=== PATIENT | female | born 1980 | race Caucasian/White ===

== ENCOUNTER 2016-12-09 16:45 | Observation (INO) | payer OTHER ==
[2016-12-09] MEDS ORDERED: ALBUTEROL SULFATE 2.5 MG/0.5 ML VIAL.NEB IH ONE ×2 (17:03→19:00)
[2016-12-09] MEDS ORDERED: predniSONE 20 MG TABLET ONE (17:18)
[2016-12-09 19:00] LABS: Albumin * 2.9 gm/dl (3.4-5.0); BUN/Creatinine Ratio 17.7 (9.0-21.6); Bilirubin, Total 0.8 mg/dL (0.0-1.1); Ca. Corrected For Albumin 9.3 mg/dL (8.4-10.2); Calcium * 8.7 mg/dL (7.9-10.9); Carbon Dioxide 27.4 mmol/L (24-32.6); Potassium 3.4 mmol/L (3.4-4.6); Total Protein 6.7 gm/dL (6.2-8.2)
[2016-12-09] MEDS ORDERED: ALBUTEROL SULFATE 2.5 MG/3 ML VIAL.NEB IH ONE (19:02)
--- NOTE | 2016-12-09 19:02 | ERNOTE ---
Dyspnea - Date Date of Service: 12/09/16 - General Presenting Symptoms: shortness of breath Source: patient Exam Limitations: no limitations - Immun/Allergies/Home Medications Immunizations: IMMUNIZATION HX Immunizations Up to Date Yes History of Influenza Vaccine No Hx Pneumococcal Vaccination No Allergies/Adverse Reactions: Allergies aspirin Allergy (Verified 12/09/16 20:58) ibuprofen Allergy (Verified 12/09/16 20:58) Home Medications: HOME MEDICATIONS Albuterol Sulfate 2.5 mg IH Q2H PRN 12/14/12 [Last Taken Unknown] Montelukast Sodium [Singulair] 10 mg PO HS 12/14/12 [Last Taken Unknown] Budesonide/Formoterol Fumarate [Symbicort 160-4.5 Mcg Inhaler] 3 puff IH BID 05/27 [Last Taken Unknown] ALPRAZolam [Xanax] 0.5 mg PO TID PRN 12/09/16 [Last Taken Unknown] Duloxetine HCl [Cymbalta] 30 mg PO DAILY 12/09/16 [Last Taken 12/09/16 09:00] Fluticasone Propionate [Flonase] 2 spray NS BID 12/09/16 [Last Taken Unknown] HYDROcodone/ACETAMINOPHEN [[place] 5-325] 1 tab PO Q4H PRN 12/09/16 [Last Taken Unknown] Sertraline HCl [Zoloft] 50 mg PO DAILY 12/09/16 [Last Taken 12/09/16 09:00] - History of Present Illness Narrative: patient started to get short of breath last night, getting continuously worse, neb treatments are only helping a little. She has a history of asthma, has had a few exacerbation, was on CPAP for it once , no intubation, no problems yet this years. She still smokes one pack per day, has a history of sleep apnea but does not use a CPAP at night Treatment [employer]: by patient, albuterol Initiating event: Reports: exposure to smoke. Denies: upper resp illness, out of meds Frequency of episodes: Reports: occassional episodes Modifying Factors - (Improves): Reports: albuterol Modifying Factors (Worsens): Reports: activity Prior Treatment: Denies: recently seen, currently on antibiotics Review of Systems - Review of Systems Constitutional: Absent: recent illness, fever, chills EYE: Absent: vision changes ENT: Absent: nose congestion, sore throat Respiratory: Present: See HPI, shortness of breath, cough - slight Cardiology: Absent: chest pain, palpitations Gastrointestinal/Abdominal: Absent: nausea, vomiting, abdominal pain Genitourinary: Present: no symptoms reported Musculoskeletal: Absent: back pain Skin: Absent: rash Neurological: Absent: headache - Patient's Past Medical History Patient History - Medical: No pertinent hx Patient History - Cardiac/Respiratory: Asthma Patient History - Cancer: No Hx of Cancer Patient History - Surgical Procedures: Cholecystectomy, Tubal Ligation, T & A LMP (females 10-50): this week - Family History Father Family History - Medical: No pertinent hx Mother Family History - Medical: No pertinent hx - Social History Living Situations: home Psych History: No pertinent hx Smoking Status: Current every day smoker - Immunizations Immunizations Up to Date: Yes Hx Pneumococcal Vaccination: No History of Influenza Vaccine: No Physical Exam - Physical Exam General Appearance: Present: wd/wn, alert, mild distress, anxious, obese Ears, Nose, Throat: Present: normal ENT inspection, normal pharynx Neck: Absent: lymphadenopathy (R), lymphadenopathy (L) Respiratory: Present: respiratory distress - mild, decreased breath sounds, expiration (prolonged) Cardiovascular/Chest: Present: no murmur, normal peripheral pulses, tachycardia Gastrointestinal/Abdominal: Present: nontender, nondistended Neurological Exam: Present: alert, oriented, normal mood/affect Skin Exam: Present: normal color, warm/dry ED Progress - Results and Orders Patient's Lab Results:: I have reviewed the patient's lab results. - Vital Signs Patient's Vital Signs:: I have reviewed the patient's vital signs. Vital Signs: Vital Signs 12/09/16 16:49 Temperature 36.4 C L Pulse Rate 116 H Respiratory 26 H Rate Blood Pressure 148/105 - X-Ray X-Ray #1 X-Ray: chest - no acute changes Interpretation: Interp. by me - Progress/Reassessment Chief Complaint: Dyspnea Progress Note-Subjective: 12/09/16 18:00 improved air movement after albuterol neb treatment, O2 sat 92% on RA 12/09/16 19:00 increased work of breathing, still wheezing 12/09/16 19:06 after minimal exertion O2 sats 88-89% 12/09/16 19:20 discussed results with patient and family, offered admission, patient agreed 12/09/16 19:30 discussed with Deidre Aaron NRP, okay to admit for asthma exacerbation ,will decided on antibiotic Departure Clinical Impression: Asthma exacerbation - Departure Disposition: [facility] Condition: Good
[2016-12-09 19:42] LABS: Mean Cell Volume 83.7 fl (78-100); Mean Corpuscular Hemoglobin 27.2 pg (27-31); Mean Corpuscular Hgb Conc 32.6 g/dl (32-36); Mean Platelet Volume 8.5 fl (6.0-9.5); Platelet Count 640 K/mm3 (150-450); Red Blood Count 5.14 M/mm3 (4.2-5.4); Red Cell Distribution Width 14.7 % (11.5-14.0)
[2016-12-09 19:59] LABS: Total Cells Counted 100
[2016-12-09 20:01] LABS: Atypical (Reactive) Lymph 4 % (0-2); Eosinophil 2 % (0-3); Lymphocyte 32 % (20-51); Monocyte 6 % (0-9); Neutrophil 56 % (42-75); Neutrophil # 10.6 K/mm3 (1.3-6.0)
[2016-12-09 20:02] LABS: Platelet Estimate Increased (NORMAL); RBC Morphology Normal (NORMAL)
--- NOTE | 2016-12-09 20:32 | HP ---
Chief Complaint - Chief Complaint Date of Service: 12/09/16 Time of Service: 20:14 Chief Complaint: " SOB, Coughing, Wheezing". Source of HPI- Pt; reliable, ER provider report. History of Present Illness: Ms. Gomes is a 36-yr-old [place] pt who normally sees Brandi Ontiveros, a family medicine physician in [place]. Her PMH is relevant for Asthma & DOROTHEA only. Pt states that she begun having worsening SOB yesterday morning. Today, she felt a lot worse with chest tightness and used her breathing treatments round the clock , at least every 2-3 hours. She reports that the treatments would help momentarily and as soon as she was done, she got SOB and needed to do another nebulizer treatment. She finally chose to come to the ED at 5pm. She denies fevers and chills. She also denies any URI symptoms. The last hospitalization for Asthma exacerbation was 1 year ago. She completed a course of Prednisone dose two weeks ago. She admits to cigarette smoking of 1 PPD for the last 17 yrs. She has attempted many times to quit, but has not been successful. At the ED today, she continued to have Expi. & Insp. Wheezing despite administration with Albuterol treatments and Oral Steroids. During ambulation, her POX dropped to 88% RA. The CXR obtained did not have any acute findings. She will need to be admitted under observation due to poor response to the emergency department treatment for Asthma Exacerbation. - Patient's Past Medical History Patient History - Medical: No pertinent hx Patient History - Cardiac/Respiratory: Asthma Patient History - Cancer: No Hx of Cancer Patient History - Surgical Procedures: Cholecystectomy, Tubal Ligation, T & A LMP (females 10-50): this week - Family History Father Family History - Medical: No pertinent hx Mother Family History - Medical: No pertinent hx - Social History Living Situations: home Psych History: No pertinent hx Smoking Status: Current every day smoker - Immunizations Immunizations Up to Date: Yes Hx Pneumococcal Vaccination: No History of Influenza Vaccine: No Review Of Systems (GEN) - Review of Systems Generalized/Overall Review: Absent: Weakness, Chills, Fever, Malaise, Diaphoresis EENTM: Absent: Eye Pain, Blurred Vision, Double Vision Respiratory: Present: Cough, Shortness of Breath, Wheezing. Absent: Orthopnea, Stridor Cardiac: Absent: Chest Pain, Edema, Palpitations, Syncope Abdominal: Absent: Nausea, Vomiting, Hematemesis Genitourinary: Absent: Burning, Itching, Urgency, Frequency, Hematuria Musculoskeletal: Absent: Joint Pain, Back Pain, Joint Swelling, Muscle Pain Neurological: Absent: Headache, Anxiety, Depressed, Numbness, Parasthesia Skin: Absent: Dryness, Lesions Endocrine: Absent: Intolerance to Cold, Intolerance to Heat, Increased Hunger, Increased Thirst Misc: All systems neg except as marked Allergies/Adverse Reactions: Allergies Allergy/AdvReac Type Severity Reaction Status Date / Time aspirin Allergy Verified 12/09/16 20:58 ibuprofen Allergy Verified 12/09/16 20:58 Home Medications: HOME MEDICATIONS Albuterol Sulfate 2.5 mg IH Q2H PRN 12/14/12 [Last Taken Unknown] Montelukast Sodium [Singulair] 10 mg PO HS 12/14/12 [Last Taken Unknown] Budesonide/Formoterol Fumarate [Symbicort 160-4.5 Mcg Inhaler] 3 puff IH BID 05/27 [Last Taken Unknown] ALPRAZolam [Xanax] 0.5 mg PO TID PRN 12/09/16 [Last Taken Unknown] Duloxetine HCl [Cymbalta] 30 mg PO DAILY 12/09/16 [Last Taken 12/09/16 09:00] Fluticasone Propionate [Flonase] 2 spray NS BID 12/09/16 [Last Taken Unknown] HYDROcodone/ACETAMINOPHEN [[place] 5-325] 1 tab PO Q4H PRN 12/09/16 [Last Taken Unknown] Sertraline HCl [Zoloft] 50 mg PO DAILY 12/09/16 [Last Taken 12/09/16 09:00] Exam - Exam Vital Signs: Vital Signs - Last Taken Temp 36.4 C L 12/09/16 16:49 Pulse 119 H 12/09/16 19:44 Resp 28 H 12/09/16 19:44 BP 134/89 12/09/16 19:07 Pulse Ox 90 12/09/16 19:44 Constitutional: Present: Alert, Oriented x3, Cooperative, Mild distress ENT Exam: Present: normal ENT inspection, hearing grossly normal. Absent: nasal drainage, pharyngeal erythema, dry mucous membranes Eye Exam: bilateral eye: normal inspection, PERRL Neck: Present: full range of motion, supple, normal inspection Back Exam: Present: normal inspection Breasts: Present: Exam deferred Respiratory: Present: wheezing, expiration (prolonged), inspiration Cardiovascular/Chest: Present: normal peripheral pulses, tachycardia Abdomen: Present: Normal bowel sounds, soft, nontender, obese /Rectal: Present: Exam deferred Extremity: Present: normal range of motion, non-tender, normal inspection Skin Exam: Present: warm/dry, cool/dry Lymphatic: Present: no adenopathy Neurologic: Present: alert, normal mood/affect, oriented x 3 Appearance: Present: appropriate appearance, appropriate insight Eye contact: Present: cooperative, good eye contact, normal speech Thoughts: Present: normal thought pattern, no apparent hallucination Assessment/Plan - Assessment/Plan (1) Asthma exacerbation Assessment: Ms. Gomes presented with a 2 day report of SOB with usual activity, coughing , chest tightness and wheezing which failed to improve with step-up treatment at home. She received treatment at the ED with Alb. nebulizer and oral steroids which relieved some SOB but only to a small degree as her POX desaturated to 88 % RA on ambulation, along with persistent Exp/Insp. wheezing. She reported a dry /non productive coughing but denied having any fevers or chills and the CXR did not have any acute findings.Also no recent URI symtoms. Therefore suspect that this was triggered by air pollutant- Cigarette smoking. Pt admitted to smoking 1 ppd and has for the last 17 yrs. Pt given reinforcement education on the danger of continued smoking given her history of Asthma and the potential result of . Will assume general treatment with: Scheduled Vernon- levabuterol instead of Albuterol due to tachycardia and also add Ipratropium q 6 hrs for bronchodilation and as Adjunct therapy to the Vernon, IV Steroids, Oxygen supplementation to keep SaO2 > 90%, Problem: Acute (2) Leukocytosis Assessment: The WBC was elevated at 15,300 but no Left shift. The pt denies fevers, chills , and is not ill appearing. The CXR did not show any infection. Suspect that WBC elevation is steroid induced and therefore Antibiotics will be unnecessary at this time. Problem: Acute (3) Thrombocytosis Assessment: Pt noted to have Platelet count of 640,000, labs on chart shows 486,000 in 2013 but no other values avail. as she does not see our providers. Thrombocytosis occurs in context of acute/chronic inflammation, infection or malignancy ( secondary /reactive) or Myeloproliferative neoplasm(Primary/Clonal). No fever or chills reported by the pt. The CXR did not show any Pneumonia or pleural effusion. Suspect that the high platelets and WBC may be due to Asthma exacerbation causing the inflammation reaction of the airway. Trend the CBC in am. If platelets are still high, consider Peripheral blood smear to check for Myeloproliferative Neoplasm, or CRP/ESR to check for inflammatory conditions. Problem: Acute (4) Obstructive sleep apnea Assessment: Pt admits to non- compliance with CPAP since April 2016, due to unfitting mask. Will provide CPAP while under hospitalization. Pt Given education reinforcement on compliance with CPAP for DOROTHEA. Problem: Chronic (5) Nicotine dependence Assessment: Will provide Nicotine patch and smoking cessation. Problem: Chronic
[2016-12-09] MEDS ORDERED: METHYLPREDNISOLONE SOD SUCC 60 MG in WATER FOR INJ.,BACTERIOSTATIC 0 ML IV SCH (21:15)
[2016-12-09] MEDS ORDERED: NICOTINE 21 MG PATC TD SCH (21:15)
[2016-12-09] MEDS ORDERED: LEVALBUTEROL HCL 1.25 MG/3 ML AMPUL IH ONE (21:55)
[2016-12-09] MEDS: LEVALBUTEROL HCL 1.25 MG/3 ML AMPUL IH SCH ×2 (21:58→23:31)
[2016-12-09] MEDS ORDERED: METHYLPREDNISOLONE SOD SUCC/PF 40 MG/ML VIAL IV SCH (22:00)
[2016-12-09] MEDS ORDERED: LEVALBUTEROL HCL 1.25 MG/3 ML AMPUL IH PRN (22:37)
[2016-12-09] MEDS ORDERED: HYDROcodone/ACETAMINOPHEN 1 EACH TABLET PO PRN (22:38)
[2016-12-09] MEDS ORDERED: ALPRAZolam 0.5 MG TABLET PO PRN (22:38)
[2016-12-09] MEDS: METHYLPREDNISOLONE SOD SUCC 60 MG in WATER FOR INJ.,BACTERIOSTATIC 0 ML IV SCH (22:58)
[2016-12-10] MEDS: ALBUTEROL SULFATE/IPRATROPIUM 3 ML NEBU IH SCH ×2 (00:42→06:06)
[2016-12-10] MEDS ORDERED: NORMAL SALINE 1,000 ML IV ONE (01:26)
[2016-12-10] MEDS: LEVALBUTEROL HCL 1.25 MG/3 ML AMPUL IH SCH ×2 (02:31→06:01)
[2016-12-10] MEDS: METHYLPREDNISOLONE SOD SUCC 60 MG in WATER FOR INJ.,BACTERIOSTATIC 0 ML IV SCH ×2 (04:34→09:30)
[2016-12-10 05:35] LABS: Hematocrit 44.4 % (37.0-47.0); Mean Cell Volume 83.9 fl (78-100); Mean Corpuscular Hemoglobin 26.5 pg (27-31); Mean Corpuscular Hgb Conc 31.5 g/dl (32-36); Mean Platelet Volume 8.7 fl (6.0-9.5); Neutrophil # 19.2 K/mm3 (1.3-6.0); Neutrophil % 88.2 % (42-75.0); Platelet Count 595 K/mm3 (150-450); Red Blood Count 5.29 M/mm3 (4.2-5.4); Red Cell Distribution Width 14.6 % (11.5-14.0); White Blood Count 21.8 K/mm3 (4.0-10.5)
[2016-12-10 06:15] VITALS: BP 119/72
[2016-12-10] MEDS ORDERED: SERTRALINE HCL 50 MG TABLET PO SCH (09:00)
[2016-12-10] MEDS ORDERED: FLUTICASONE PROPIONATE 120 SPRAY INHALER NS SCH (09:00)
[2016-12-10] MEDS ORDERED: DULoxetine HCL 30 MG CAPSULE.SA PO SCH (09:00)
--- NOTE | 2016-12-10 09:11 | DS ---
(1) Asthma exacerbation Problem: Acute (2) Leukocytosis Problem: Acute (3) Thrombocytosis Problem: Acute (4) Nicotine dependence Problem: Chronic Qualifiers: Nicotine product type: cigarettes Description of Stay: ADMISSION DATE: 12/09/2016 DISCHARGE DATE: 12/10/2016 ADMISSION HPI BY KWAME BATISTA: Ms. Gomes is a 36-yr-old [place] pt who normally sees Brandi Ontiveros, a family medicine physician in [place]. Her PMH is relevant for Asthma & DOROTHEA only. Pt states that she begun having worsening SOB yesterday morning. Today, she felt a lot worse with chest tightness and used her breathing treatments round the clock , at least every 2-3 hours. She reports that the treatments would help momentarily and as soon as she was done, she got SOB and needed to do another nebulizer treatment. She finally chose to come to the ED at 5pm. She denies fevers and chills. She also denies any URI symptoms. The last hospitalization for Asthma exacerbation was 1 year ago. She completed a course of Prednisone dose two weeks ago. She admits to cigarette smoking of 1 PPD for the last 17 yrs. She has attempted many times to quit, but has not been successful. At the ED today, she continued to have expiratory and inspiratory wheezing despite administration with Albuterol treatments and Oral Steroids. During ambulation, her POX dropped to 88% RA. The CXR obtained did not have any acute findings. She will need to be admitted under observation due to poor response to the emergency department treatment for Asthma Exacerbation. HOSPITAL COURSE: Patient admitted overnight, observation status, for an acute asthma exacerbation. She was treated with IV steroids and breathing treatments and patient reported marked improvement from the day prior. Leukocytosis likely multifactorial in etiology including both a reactive process due to the acute asthma exacerbation as well as from high-dose IV steroids. I would recommend that the patients PCP check a CBC at time of follow-up. Patient was counseled on smoking cessation and was given a nicotine patch during her admission. Blood work revealed an elevated platelet count. Unfortunately, we do not have any recent prior blood work to compare this to and it is possible that this is reactive in nature as well. If there is ongoing elevation of her platelet count , consider further workup as an outpatient. The patient was discharged home in stable condition and instructed to complete 5 days of prednisone 40 mg daily. She was also instructed to follow-up with her primary care provider within one week. FOLLOW-UP APPOINTMENTS: PCP within 1 week. I would recommend that the patients PCP check a CBC at time of follow-up. NEW OR CHANGED MEDICATIONS: Prednisone 40mg PO daily X 5 days DISCONTINUED MEDICATIONS: None RADIOLOGY: CXR on 12/09/2016: No acute cardiopulmonary process. The cardiac silhouette is within normal limits of size. The mediastinum and hilum with in normal limits. There is evidence of prior granulomatous disease within the hilum. The lung rutherford are clear. No evidence for an infiltrate, effusion, definable pneumothorax, subcutaneous emphysema, or pulmonary edema. No definable acute osseous abnormality on his chest on. Procedures Performed: none Results and Findings: Laboratory Tests 12/09/16 12/09/16 12/10/16 17:05 17:05 05:34 WBC 19.0 H 21.8 H RBC 5.14 5.29 Hgb 14.0 14.0 Hct 43.0 44.4 MCV 83.7 83.9 MCH 27.2 26.5 L MCHC 32.6 31.5 L RDW 14.7 H 14.6 H Plt Count 640 H 595 H MPV 8.5 8.7 Immature Gran % (Auto) 0.70 H Immature Gran # (Auto) 0.15 H Neutrophils % 88.2 H Neutrophils % (Manual) 56 Lymphocytes % 9.5 L Lymphocytes % (Manual) 32 Monocytes % 1.4 Monocytes % (Manual) 6 Eosinophils % 0.0 Eosinophils % (Manual) 2 Basophils % 0.2 Nucleated RBC % 0.0 Neutrophils # 19.2 H Neutrophils # (Manual) 10.6 H Lymphocytes # 2.1 Lymphocytes # (Manual) 6.1 H Monocytes # 0.3 Monocytes # (Manual) 1.1 H Eosinophils # 0.0 Eosinophils # (Manual) 0.4 Absolute Basophils 0.0 Atypic/Reactive Lymphs 4 H Platelet Estimate Increased H RBC Morphology Normal Sodium 142 Plasma Sodium 142 Potassium 3.4 Chloride 106 Carbon Dioxide 27.4 Anion Gap 12.0 BUN 11 Creatinine 0.62 Est GFR (Non-Af Amer) 114 D BUN/Creatinine Ratio 17.7 Random Glucose 124 H Calcium 8.7 Calcium Adj for Albumin 9.3 Total Bilirubin 0.8 AST 13 ALT 26 Alkaline Phosphatase 88 Total Protein 6.7 Albumin 2.9 L Discharge Disposition: Home self care Disposition: Home self-care Condition: Stable Discharge Activity: Activity as tolerated Discharge Diet: General/regular food, Resume usual diet Problem Oriented Discharge Instructions to Patient/Family: Asthma, Adult, Easy- to-Read Additional Patient Instructions (free text): Follow-up with PCP within [address] Smith 12/17 at 4:00. Prescriptions (Any new or edited meds): predniSONE [Prednisone] 2 tab PO DAILY #10 tab Complete Home Medications List: Complete Home Medication List: Albuterol Sulfate 2.5 mg IH Q2H PRN 12/14/12 Montelukast Sodium [Singulair] 10 mg PO HS 12/14/12 Budesonide/Formoterol Fumarate [Symbicort 160-4.5 Mcg Inhaler] 3 puff IH BID 05/27 ALPRAZolam [Xanax] 0.5 mg PO TID PRN 12/09/16 Duloxetine HCl [Cymbalta] 30 mg PO DAILY 12/09/16 Fluticasone Propionate [Flonase] 2 spray NS BID 12/09/16 HYDROcodone/ACETAMINOPHEN [[place] 5-325] 1 tab PO Q4H PRN 12/09/16 Sertraline HCl [Zoloft] 50 mg PO DAILY 12/09/16 predniSONE [Prednisone] 2 tab PO DAILY #10 tab 12/10/16
--- OUTSIDE RECORDS SUMMARY | 2016-12-10 11:08 | XMS REPORT | Continuity of Care Document ---
:1980 Author Organization [facility] ([facility]) Address [address] [place] [address] Phone [phone] Care Team Providers Name Role Phone Diana Meet Primary Care Provider [phone] Source Comments This disclosure is being made pursuant to the Care Everywhere program, applicable federal and state laws, and may not contain all informaitonavailable regarding this patient.[facility] ([facility]) Active Allergies and Adverse Reactions Allergen Noted Date Severity Reactions Comments Aspirin 06/21/2014 Upper Airway Edema Ibuprofen 09/03/2012 Upper Airway Edema Current Medications Prescription Sig. Disp. Refills Start Date End Date Status montelukast Take 10 mg by mouth Active (SINGULAIR) 10 mg daily. tablet albuterol 2.5 mg/3 Use 3 mL by inhalation Active mL inhalation every 2 hours as solution needed. albuterol 90 Use 1-2 Puffs by Active mcg/Actuation inhalation every 4 inhaler hours as needed. nortriptyline 10 mg Take 10 mg by mouth at Active capsule bedtime. budesonide-formotero Use 2 Puffs by Active l (SYMBICORT) inhalation 2 times 160-4.5 daily. mcg/Actuation inhaler omeprazole 40 mg Take 1 Cap by mouth 30 Cap 11 09/04/2014 Active enteric coated daily. Indications: capsule GASTROESOPHAGEAL REFLUX predniSONE 10 mg Take 0-2 Tabs by mouth 30 Tab 11 11/06/2014 Active tablet daily. Indications: ASTHMA EXACERBATION buPROPion (ZYBAN) Take 1 tab daily x 3 84 Tab 0 11/06/2014 Active 150 mg SR tablet d. Then take 1 tab daily 2x/day. "Quit date" 1-2 weeks after start. Indications: SMOKING CESSATION Active Problems Problem Noted Date Morbid obesity 09/04/2014 Asthma, severe persistent 09/04/2014 Asthma exacerbation 06/21/2014 Nonintractable migraine 06/21/2014 Irritable bowel syndrome Immunizations Name Dates Previously Given Next Due Influenza, unspecified 04/12/2014 Pneumococcal, unspecified 07/13/2011 Social History Tobacco Use Types Packs/Day Years Used Date Former Smoker Cigarettes 1 17 Quit: 09/11/2014 Smokeless Tobacco: Never Used Alcohol Use Drinks/Week oz/Week Comments Yes Last Filed Vital Signs Vital Sign Reading Time Taken Blood Pressure 137/84 11/06/2014 11:41 AM CDT Pulse 95 11/06/2014 11:41 AM CDT Temperature 36.7 C (98.1 F) 11/06/2014 11:41 AM CDT Respiratory Rate 24 11/06/2014 11:41 AM CDT Height 1.57 m (5' 1.81") 11/06/2014 11:41 AM CDT Weight 133 kg (293 lb 3.4 oz) 11/06/2014 11:41 AM CDT Body Mass Index 53.96 11/06/2014 11:41 AM CDT Oxygen Saturation 99% 11/06/2014 11:41 AM CDT Plan of Care Health Maintenance Due Date Last Done Comments Hepatitis B Vaccine (1 of 3 - Primary Series) 1980 Tdap Vaccine 1989 Lipid Disorder Screening 1996 MMR Vaccine 1996 Td Vaccine 1996 Pneumococcal Vaccine (1 of 1 - PPSV23) 1997 Cervical Cancer Screening 2008 Influenza Vaccine: Seasonal (#1) 02/11/2016 04/12/2014 Results from Last 3 Months Not on file
--- OUTSIDE RECORDS SUMMARY | 2016-12-10 11:08 | XMS REPORT | Continuity of Care Document ---
:1980 Author Organization [facility] ([facility]) Address [address] [place] [address] Phone [phone] Care Team Providers Name Role Phone Diana Meet Primary Care Provider [phone] Source Comments This disclosure is being made pursuant to the Care Everywhere program, applicable federal and state laws, and may not contain all informaitonavailable regarding this patient.[facility] ([facility]) Active Allergies and Adverse Reactions Allergen Noted [...]
[2016-12-10] MEDS ORDERED: MONTELUKAST SODIUM 10 MG TABLET PO SCH (21:00)
== END 2016-12-10 10:47 | disposition home or self-care (01) ==
LOC: ER 16:45 → MS 20:11
PROVIDERS: ADMIT Nurse Practitioner; ATTEND Internal Medicine
DX: J45.901 Unspecified asthma with (acute) exacerbation (principal); G47.33 Obstructive sleep apnea (adult) (pediatric); F17.200 Nicotine dependence, unspecified, uncomplicated; D72.829 Elevated white blood cell count, unspecified; D47.3 Essential (hemorrhagic) thrombocythemia
CPT/HCPCS: 36415; 71020; 80053; 85007; 85025; 87081; 94640; 94660; 94760; 96374; 96376; 99284; G0378